=== PATIENT | female | born 1955 | race Caucasian/White ===

== ENCOUNTER → 2021-07-04 | Outpatient (CLI) | payer MEDICARE ==
--- NOTE | 2021-07-04 12:04 | REP ---
INDICATION: PAIN. COMPARISON: None. TECHNIQUE: Standing frontal, lateral and sunrise views of both knees were obtained. FINDINGS: Three views of the right knee demonstrate a total knee arthroplasty. The tibial, femoral and patellar components appear normal apposition. There is no evidence of loosening or fracture. There is no evidence of dislocation. There is no knee joint effusion. The periarticular soft tissues are unremarkable. Three views of the left knee demonstrate severe arthritis of the lateral joint space compartment of the knee and mild arthritis of the patellofemoral joint and the medial joint space compartment of the knee. There is no knee joint effusion. The periarticular soft tissues are normal. There is no evidence of fracture or dislocation. IMPRESSION: 1. Normal appearing right total knee arthroplasty. 2. 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 <Electronically signed by Marcelino Sheldon > 07/04/21 1200
== END ==
LOC: M SOG 10:34
PROVIDERS: ATTEND Orthopaedic Surgery Adult Reconstructive Orthopaedic Surgery
DX: M17.12 Unilateral primary osteoarthritis, left knee (principal); M25.562 Pain in left knee; M25.561 Pain in right knee; Z96.651 Presence of right artificial knee joint

== ENCOUNTER 2022-04-09 11:54 | Inpatient (IN) | payer MEDICARE, OTHER ==
[~2022-04-09] VITALS: Ht 162.6 cm; Wt 106.7 kg
[2022-04-09 13:40] LABS: BASO # 0.1 10^3/uL (0.0-0.2); BASO % 0.6 % (0.0-1.0); EOS # 0.2 10^3/uL (0.0-0.5); EOS % 2.2 % (0.0-3.0); HEMATOCRIT 34.1 % (36.0-47.0); HEMOGLOBIN 11.4 g/dl (12.0-15.5); LYMPH # 2.6 10^3/uL (1.5-5.0); LYMPH % 29.7 % (24.0-44.0); MEAN CORPUSCULAR HEMOGLOBIN 30.8 pg (27.0-33.0); MEAN CORPUSCULAR HGB CONC 33.4 g/dl (32.0-36.5); MEAN CORPUSCULAR VOLUME 92.2 fl (80.0-96.0); MONO # 0.8 10^3/uL (0.0-0.8); MONO % 9.5 % (2.0-8.0); NEUTROPHILS # 5.1 10^3/uL (1.5-8.5); NEUTROPHILS % 57.4 % (36.0-66.0); PLATELET COUNT, AUTOMATED 312 10^3/uL (150-450); WHITE BLOOD COUNT 8.8 10^3/uL (4.0-10.0)
[2022-04-09 14:12] LABS: BLOOD UREA NITROGEN 15 MG/DL (7-18); CALCIUM LEVEL 9.9 MG/DL (8.8-10.2); CARBON DIOXIDE LEVEL 31 MEQ/L (21-32); CHLORIDE LEVEL 104 MEQ/L (98-107); GLOMERULAR FILTRATION RATE > 60.0 (>45); GLUCOSE, FASTING 81 MG/DL (70-100); NT-PRO BNP 465 PG/ML (<125); SODIUM LEVEL 140 MEQ/L (136-145)
[2022-04-09 14:14] LABS: ERYTHROCYTE SEDIMENTATION RATE 27 mm/hr (0-30)
[2022-04-09] MEDS ORDERED: KETOROLAC 30 MG/ML 1ML VIAL IV ONE (14:15)
[2022-04-09] MEDS ORDERED: POTASSIUM CHLORIDE 10MEQ SR TABLET PO ONE (14:20)
[2022-04-09] MEDS ORDERED: MORPHINE 2 MG/ML 1ML VIAL IV ONE ×2 (15:55→16:35)
[2022-04-09] MEDS ORDERED: wheelchair (17:55)
[2022-04-09] MEDS ORDERED: NORCO, ANEXSIA 5/325MG TABLET (HYDROcodone/ACETAMINOPHEN) PO ONE (19:20)
[2022-04-09] MEDS ORDERED: MOM 30ML SUSPENSION UDC PO PRN (20:05)
[2022-04-09] MEDS ORDERED: MAALOX 30 ML SUSP *UDC PO PRN (20:05)
[2022-04-09] MEDS: DOCUSATE SODIUM 100MG CAPSULE PO SCH (21:00)
[2022-04-09] MEDS ORDERED: DULO30CA9 PO (21:21)
[2022-04-09] MEDS ORDERED: GABA-282 PO (21:21)
[2022-04-09] MEDS ORDERED: TRAZ-252 PO (21:21)
[2022-04-09] MEDS ORDERED: OYST500T92 PO (21:21)
[2022-04-09] MEDS ORDERED: MELO15TA28 PO (21:21)
[2022-04-09] MEDS ORDERED: VITA100093 PO (21:21)
[2022-04-09] MEDS ORDERED: HYDR-3490 PO (21:21)
[2022-04-09] MEDS ORDERED: MONT10TA97 PO (21:21)
[2022-04-09] MEDS ORDERED: FLON1SPR (21:21)
[2022-04-09] MEDS ORDERED: SYMB16INH INH (21:21)
[2022-04-09] MEDS ORDERED: IBUP1TAB7 PO (21:21)
[2022-04-09] MEDS ORDERED: BUPR15TASR PO (21:21)
[2022-04-09] MEDS ORDERED: ST J300C2 PO (21:21)
[2022-04-09] MEDS ORDERED: CINN500C15 PO (21:21)
[2022-04-09] MEDS ORDERED: AZEL0.05 OU (21:21)
[2022-04-09] MEDS ORDERED: HYDR-3363 PO (21:21)
[2022-04-09] MEDS ORDERED: HOME MED LIST COMPLETE! XX SCH (21:25)
[2022-04-09 21:47] LABS: INR 1.03; PROTHROMBIN TIME 13.9 SECONDS (12.7-14.5)
[2022-04-09 21:48] LABS: PARTIAL THROMBOPLASTIN TIME 38.9 SECONDS (25.9-37.0)
[2022-04-09 21:52] LABS: RSV AMPLIFICATION NEGATIVE (NEGATIVE)
[2022-04-09 22:55] VITALS: BP 130/91
[2022-04-10] MEDS: ACETAMINOPHEN TAB 650MG DOSE (2X325MG) PO PRN (00:12)
[2022-04-10] MEDS: GABAPENTIN 300 MG CAP PO SCH ×4 (00:15→20:31)
[2022-04-10] MEDS: hydrOXYzine 25 MG TAB PO SCH ×2 (00:25→20:31)
[2022-04-10] MEDS: KETOROLAC 30 MG/ML 1ML VIAL IV PRN ×2 (01:42→08:19)
[2022-04-10] MEDS: buPROPion **SR TABLET** (ZYBAN) 150MG PO SCH ×3 (02:40→20:31)
[2022-04-10] MEDS: FLUTICASONE PROP 0.05% NASAL SPRAY 16 GM (FLONASE) SCH ×3 (02:40→20:32)
[2022-04-10] MEDS: traZODone 25MG PER 1/2 TABLET PO SCH ×2 (02:41→20:31)
[2022-04-10 05:45] VITALS: BP 116/65
[2022-04-10 05:57] LABS: HEMATOCRIT 33.1 % (36.0-47.0); HEMOGLOBIN 11.2 g/dl (12.0-15.5); MEAN CORPUSCULAR HEMOGLOBIN 31.5 pg (27.0-33.0); MEAN CORPUSCULAR HGB CONC 33.8 g/dl (32.0-36.5); MEAN CORPUSCULAR VOLUME 93.2 fl (80.0-96.0); PLATELET COUNT, AUTOMATED 292 10^3/uL (150-450); RED BLOOD COUNT 3.55 10^6/uL (4.00-5.40); WHITE BLOOD COUNT 7.5 10^3/uL (4.0-10.0)
[2022-04-10] MEDS ORDERED: POTASSIUM CHLORIDE 10MEQ SR TABLET PO ONE ×2 (06:00→09:00)
[2022-04-10 06:17] LABS: BLOOD UREA NITROGEN 15 MG/DL (7-18); CALCIUM LEVEL 9.5 MG/DL (8.8-10.2); CARBON DIOXIDE LEVEL 35 MEQ/L (21-32); CHLORIDE LEVEL 105 MEQ/L (98-107); CREATININE FOR GFR 0.56 MG/DL (0.55-1.30); GLOMERULAR FILTRATION RATE > 60.0 (>45); GLUCOSE, FASTING 90 MG/DL (70-100); MAGNESIUM LEVEL 1.5 MG/DL (1.8-2.4); POTASSIUM SERUM 2.6 MEQ/L (3.5-5.1); SODIUM LEVEL 142 MEQ/L (136-145)
[2022-04-10] MEDS: KCL 10MEQ/100ML SWI (KRUN) 10 MEQ in IV 1 EA IV SCH ×2 (06:42→08:17)
[2022-04-10] MEDS: SYMBICORT 160/4.5MCG INHALER 6GM INH SCH ×2 (07:00→20:06)
[2022-04-10] MEDS ORDERED: KCL 10MEQ/100ML SWI (KRUN) 10 MEQ in IV 1 EA IV ONE (07:45)
[2022-04-10] MEDS: ENOXAPARIN 40MG/0.4ML SYRINGE (J1650 PER 10MG) SC SCH (08:17)
[2022-04-10] MEDS: MONTELUKAST 10 MG TAB PO SCH (08:17)
[2022-04-10] MEDS: DOCUSATE SODIUM 100MG CAPSULE PO SCH ×2 (08:18→20:31)
[2022-04-10] MEDS: DULoxetine 30MG CAPSULE (CYMBALTA) PO SCH (08:18)
[2022-04-10] MEDS: MELOXICAM (MOBIC) 7.5 MG TAB PO SCH (08:19)
[2022-04-10] MEDS: MAG SULF 1GM/100ML (MAG RUN) 1 GM in IV 1 EA IV SCH ×2 (10:51→12:19)
[2022-04-10] MEDS ORDERED: MAGNESIUM SULFATE 1GM/100ML D5W BAG (10MG/ML) As Ordered ONE (12:18)
[2022-04-10 14:00] VITALS: BP 116/60
[2022-04-10 15:47] LABS: BLOOD UREA NITROGEN 16 MG/DL (7-18); CALCIUM LEVEL 9.5 MG/DL (8.8-10.2); CARBON DIOXIDE LEVEL 33 MEQ/L (21-32); CHLORIDE LEVEL 103 MEQ/L (98-107); CREATININE FOR GFR 0.53 MG/DL (0.55-1.30); GLOMERULAR FILTRATION RATE > 60.0 (>45); GLUCOSE, FASTING 107 MG/DL (70-100); POTASSIUM SERUM 3.4 MEQ/L (3.5-5.1); SODIUM LEVEL 139 MEQ/L (136-145)
[2022-04-10 20:03] VITALS: BP 125/74
[2022-04-11 06:15] VITALS: BP 134/83
[2022-04-11] MEDS: SYMBICORT 160/4.5MCG INHALER 6GM INH SCH ×2 (08:01→19:09)
[2022-04-11 08:27] LABS: BASO % 0.4 % (0.0-1.0); EOS # 0.2 10^3/uL (0.0-0.5); EOS % 2.3 % (0.0-3.0); HEMATOCRIT 34.8 % (36.0-47.0); HEMOGLOBIN 11.4 g/dl (12.0-15.5); LYMPH # 2.5 10^3/uL (1.5-5.0); MEAN CORPUSCULAR HEMOGLOBIN 31.1 pg (27.0-33.0); MEAN CORPUSCULAR HGB CONC 32.8 g/dl (32.0-36.5); MEAN CORPUSCULAR VOLUME 94.8 fl (80.0-96.0); MONO # 0.8 10^3/uL (0.0-0.8); NEUTROPHILS # 5.5 10^3/uL (1.5-8.5); NEUTROPHILS % 60.9 % (36.0-66.0); PLATELET COUNT, AUTOMATED 294 10^3/uL (150-450); RED BLOOD COUNT 3.67 10^6/uL (4.00-5.40); WHITE BLOOD COUNT 9.1 10^3/uL (4.0-10.0)
[2022-04-11 08:58] LABS: ALT/SGPT 10 U/L (12-78); BILIRUBIN,TOTAL 0.3 MG/DL (0.2-1.0); BLOOD UREA NITROGEN 11 MG/DL (7-18); CALCIUM LEVEL 9.6 MG/DL (8.8-10.2); CARBON DIOXIDE LEVEL 31 MEQ/L (21-32); CHLORIDE LEVEL 108 MEQ/L (98-107); GLOMERULAR FILTRATION RATE > 60.0 (>45); GLUCOSE, FASTING 93 MG/DL (70-100); MAGNESIUM LEVEL 1.9 MG/DL (1.8-2.4); POTASSIUM SERUM 3.3 MEQ/L (3.5-5.1); SODIUM LEVEL 144 MEQ/L (136-145); TOTAL PROTEIN 6.1 GM/DL (6.4-8.2)
[2022-04-11] MEDS: DULoxetine 30MG CAPSULE (CYMBALTA) PO SCH (09:57)
[2022-04-11] MEDS: ENOXAPARIN 40MG/0.4ML SYRINGE (J1650 PER 10MG) SC SCH (09:57)
[2022-04-11] MEDS: MELOXICAM (MOBIC) 7.5 MG TAB PO SCH (09:57)
[2022-04-11] MEDS: DOCUSATE SODIUM 100MG CAPSULE PO SCH ×2 (09:58→20:49)
[2022-04-11] MEDS: GABAPENTIN 300 MG CAP PO SCH ×3 (09:58→20:49)
[2022-04-11] MEDS: ACETAMINOPHEN TAB 650MG DOSE (2X325MG) PO PRN (09:58)
[2022-04-11] MEDS: MONTELUKAST 10 MG TAB PO SCH (09:58)
[2022-04-11] MEDS: buPROPion **SR TABLET** (ZYBAN) 150MG PO SCH ×2 (09:58→20:49)
[2022-04-11] MEDS: FLUTICASONE PROP 0.05% NASAL SPRAY 16 GM (FLONASE) SCH ×2 (09:59→20:50)
[2022-04-11] MEDS: SPIRONOLACTONE 12.5MG PER 1/2 TABLET PO SCH (12:55)
[2022-04-11] MEDS: hydroCHLOROthiazide 12.5 MG CAPSULE PO SCH ×2 (12:56→13:11)
[2022-04-11] MEDS: cefTRIAXone SOD 1 GM in D5W MINI-BAG PLUS 50 ML IV SCH (16:52)
[2022-04-11] MEDS: traZODone 25MG PER 1/2 TABLET PO SCH (20:49)
[2022-04-11] MEDS: hydrOXYzine 25 MG TAB PO SCH (20:49)
[2022-04-11 21:00] VITALS: BP 111/57
[2022-04-12 06:25] VITALS: BP 119/75
[2022-04-12] MEDS: SYMBICORT 160/4.5MCG INHALER 6GM INH SCH ×2 (07:15→19:55)
[2022-04-12] MEDS ORDERED: ISOVUE-370 76% 100ML VIAL As Ordered ONE (07:51)
[2022-04-12 09:17] LABS: BASO # 0.1 10^3/uL (0.0-0.2); BASO % 0.6 % (0.0-1.0); EOS # 0.2 10^3/uL (0.0-0.5); EOS % 2.2 % (0.0-3.0); HEMATOCRIT 39.4 % (36.0-47.0); HEMOGLOBIN 12.5 g/dl (12.0-15.5); LYMPH # 2.6 10^3/uL (1.5-5.0); LYMPH % 24.9 % (24.0-44.0); MEAN CORPUSCULAR HGB CONC 31.7 g/dl (32.0-36.5); MEAN CORPUSCULAR VOLUME 94.7 fl (80.0-96.0); MONO # 0.8 10^3/uL (0.0-0.8); MONO % 7.5 % (2.0-8.0); NEUTROPHILS # 6.6 10^3/uL (1.5-8.5); NEUTROPHILS % 64.4 % (36.0-66.0); PLATELET COUNT, AUTOMATED 326 10^3/uL (150-450); RED BLOOD COUNT 4.16 10^6/uL (4.00-5.40); WHITE BLOOD COUNT 10.2 10^3/uL (4.0-10.0)
[2022-04-12 09:47] LABS: BLOOD UREA NITROGEN 8 MG/DL (7-18); CALCIUM LEVEL 9.8 MG/DL (8.8-10.2); CARBON DIOXIDE LEVEL 31 MEQ/L (21-32); CHLORIDE LEVEL 109 MEQ/L (98-107); CREATININE FOR GFR 0.56 MG/DL (0.55-1.30); GLOMERULAR FILTRATION RATE > 60.0 (>45); GLUCOSE, FASTING 83 MG/DL (70-100); POTASSIUM SERUM 3.6 MEQ/L (3.5-5.1); SODIUM LEVEL 145 MEQ/L (136-145)
[2022-04-12] MEDS: ENOXAPARIN 40MG/0.4ML SYRINGE (J1650 PER 10MG) SC SCH (09:56)
[2022-04-12] MEDS: hydroCHLOROthiazide 12.5 MG CAPSULE PO SCH (09:57)
[2022-04-12] MEDS: MONTELUKAST 10 MG TAB PO SCH (09:57)
[2022-04-12] MEDS: GABAPENTIN 300 MG CAP PO SCH ×3 (09:57→20:45)
[2022-04-12] MEDS: DULoxetine 30MG CAPSULE (CYMBALTA) PO SCH (09:57)
[2022-04-12] MEDS: SPIRONOLACTONE 12.5MG PER 1/2 TABLET PO SCH (09:57)
[2022-04-12] MEDS: MELOXICAM (MOBIC) 7.5 MG TAB PO SCH (09:57)
[2022-04-12] MEDS: buPROPion **SR TABLET** (ZYBAN) 150MG PO SCH ×2 (09:57→20:45)
[2022-04-12] MEDS: FLUTICASONE PROP 0.05% NASAL SPRAY 16 GM (FLONASE) SCH ×2 (09:58→21:00)
[2022-04-12 14:00] VITALS: BP 140/83
[2022-04-12] MEDS: cefTRIAXone SOD 1 GM in D5W MINI-BAG PLUS 50 ML IV SCH (17:00)
[2022-04-12] MEDS: hydrOXYzine 25 MG TAB PO SCH (20:45)
[2022-04-12] MEDS: traZODone 25MG PER 1/2 TABLET PO SCH (20:45)
[2022-04-12 21:30] VITALS: BP 141/85
[2022-04-13 06:00] VITALS: BP 138/67
[2022-04-13 06:10] LABS: BASO % 0.5 % (0.0-1.0); EOS # 0.2 10^3/uL (0.0-0.5); EOS % 2.4 % (0.0-3.0); HEMATOCRIT 33.7 % (36.0-47.0); HEMOGLOBIN 10.8 g/dl (12.0-15.5); LYMPH # 2.8 10^3/uL (1.5-5.0); LYMPH % 32.1 % (24.0-44.0); MEAN CORPUSCULAR HEMOGLOBIN 30.7 pg (27.0-33.0); MEAN CORPUSCULAR VOLUME 95.7 fl (80.0-96.0); MONO # 0.9 10^3/uL (0.0-0.8); MONO % 9.8 % (2.0-8.0); NEUTROPHILS # 4.7 10^3/uL (1.5-8.5); NEUTROPHILS % 54.9 % (36.0-66.0); PLATELET COUNT, AUTOMATED 267 10^3/uL (150-450); RED BLOOD COUNT 3.52 10^6/uL (4.00-5.40); WHITE BLOOD COUNT 8.7 10^3/uL (4.0-10.0)
[2022-04-13 06:30] LABS: BLOOD UREA NITROGEN 8 MG/DL (7-18); CARBON DIOXIDE LEVEL 28 MEQ/L (21-32); CHLORIDE LEVEL 107 MEQ/L (98-107); CREATININE FOR GFR 0.44 MG/DL (0.55-1.30); GLOMERULAR FILTRATION RATE > 60.0 (>45); GLUCOSE, FASTING 82 MG/DL (70-100); MAGNESIUM LEVEL 1.7 MG/DL (1.8-2.4); POTASSIUM SERUM 3.3 MEQ/L (3.5-5.1); SODIUM LEVEL 142 MEQ/L (136-145)
[2022-04-13] MEDS: SYMBICORT 160/4.5MCG INHALER 6GM INH SCH ×2 (07:13→20:15)
[2022-04-13] MEDS: DULoxetine 30MG CAPSULE (CYMBALTA) PO SCH (09:58)
[2022-04-13] MEDS: ENOXAPARIN 40MG/0.4ML SYRINGE (J1650 PER 10MG) SC SCH (09:58)
[2022-04-13] MEDS: MAG SULF 1GM/100ML (MAG RUN) 1 GM in IV 1 EA IV SCH ×2 (09:58→10:54)
[2022-04-13] MEDS: POTASSIUM CHLORIDE 10MEQ SR TABLET PO SCH ×2 (09:58→20:22)
[2022-04-13] MEDS: buPROPion **SR TABLET** (ZYBAN) 150MG PO SCH ×2 (09:58→20:23)
[2022-04-13] MEDS: GABAPENTIN 300 MG CAP PO SCH ×3 (09:58→20:23)
[2022-04-13] MEDS: MELOXICAM (MOBIC) 7.5 MG TAB PO SCH (09:58)
[2022-04-13] MEDS: MONTELUKAST 10 MG TAB PO SCH (09:59)
[2022-04-13] MEDS: hydroCHLOROthiazide 12.5 MG CAPSULE PO SCH (09:59)
[2022-04-13] MEDS: FLUTICASONE PROP 0.05% NASAL SPRAY 16 GM (FLONASE) SCH ×2 (09:59→20:23)
[2022-04-13] MEDS: SPIRONOLACTONE 12.5MG PER 1/2 TABLET PO SCH (10:01)
[2022-04-13 14:00] VITALS: BP 134/72
[2022-04-13] MEDS: cefTRIAXone SOD 1 GM in D5W MINI-BAG PLUS 50 ML IV SCH (17:27)
[2022-04-13] MEDS: ACETAMINOPHEN TAB 650MG DOSE (2X325MG) PO PRN (17:27)
[2022-04-13] MEDS: hydrOXYzine 25 MG TAB PO SCH (20:23)
[2022-04-13] MEDS: MAGNESIUM OXIDE 400MG TAB (MAG-OX) PO SCH (20:23)
[2022-04-13] MEDS: traZODone 25MG PER 1/2 TABLET PO SCH (20:23)
[2022-04-13 20:25] VITALS: BP 136/69
[2022-04-14 05:06] VITALS: BP 147/80
[2022-04-14] MEDS: ACETAMINOPHEN TAB 650MG DOSE (2X325MG) PO PRN (06:06)
[2022-04-14 06:49] LABS: BASO # 0.1 10^3/uL (0.0-0.2); BASO % 0.7 % (0.0-1.0); EOS # 0.2 10^3/uL (0.0-0.5); HEMATOCRIT 34.6 % (36.0-47.0); HEMOGLOBIN 11.4 g/dl (12.0-15.5); LYMPH % 33.5 % (24.0-44.0); MEAN CORPUSCULAR HEMOGLOBIN 30.6 pg (27.0-33.0); MEAN CORPUSCULAR HGB CONC 32.9 g/dl (32.0-36.5); MEAN CORPUSCULAR VOLUME 92.8 fl (80.0-96.0); MONO # 0.8 10^3/uL (0.0-0.8); MONO % 9.3 % (2.0-8.0); NEUTROPHILS # 4.8 10^3/uL (1.5-8.5); NEUTROPHILS % 54.1 % (36.0-66.0); PLATELET COUNT, AUTOMATED 288 10^3/uL (150-450); RED BLOOD COUNT 3.73 10^6/uL (4.00-5.40); WHITE BLOOD COUNT 8.9 10^3/uL (4.0-10.0)
[2022-04-14 07:08] LABS: BLOOD UREA NITROGEN 9 MG/DL (7-18); CARBON DIOXIDE LEVEL 29 MEQ/L (21-32); CHLORIDE LEVEL 107 MEQ/L (98-107); GLOMERULAR FILTRATION RATE > 60.0 (>45); GLUCOSE, FASTING 83 MG/DL (70-100); SODIUM LEVEL 140 MEQ/L (136-145)
[2022-04-14] MEDS: SYMBICORT 160/4.5MCG INHALER 6GM INH SCH ×2 (07:12→20:39)
[2022-04-14] MEDS: SPIRONOLACTONE 12.5MG PER 1/2 TABLET PO SCH (09:42)
[2022-04-14] MEDS: buPROPion **SR TABLET** (ZYBAN) 150MG PO SCH ×2 (09:43→21:37)
[2022-04-14] MEDS: POTASSIUM CHLORIDE 10MEQ SR TABLET PO SCH ×2 (09:43→21:35)
[2022-04-14] MEDS: GABAPENTIN 300 MG CAP PO SCH ×3 (09:43→21:36)
[2022-04-14] MEDS: ENOXAPARIN 40MG/0.4ML SYRINGE (J1650 PER 10MG) SC SCH (09:43)
[2022-04-14] MEDS: MELOXICAM (MOBIC) 7.5 MG TAB PO SCH (09:43)
[2022-04-14] MEDS: CEFDINIR 300 MG CAP (OMNICEF) PO SCH ×2 (09:43→21:36)
[2022-04-14] MEDS: MAGNESIUM OXIDE 400MG TAB (MAG-OX) PO SCH ×2 (09:43→21:36)
[2022-04-14] MEDS: MONTELUKAST 10 MG TAB PO SCH (09:44)
[2022-04-14] MEDS: hydroCHLOROthiazide 12.5 MG CAPSULE PO SCH (09:44)
[2022-04-14] MEDS: FLUTICASONE PROP 0.05% NASAL SPRAY 16 GM (FLONASE) SCH ×2 (09:44→21:37)
[2022-04-14] MEDS: DULoxetine 30MG CAPSULE (CYMBALTA) PO SCH (09:44)
[2022-04-14] MEDS ORDERED: FUROSEMIDE 40MG/4ML VIAL (J1940) IV ONE (12:00)
[2022-04-14] MEDS: NORCO, ANEXSIA 5/325MG TABLET (HYDROcodone/ACETAMINOPHEN) PO PRN (13:08)
[2022-04-14 14:00] VITALS: BP 137/72
[2022-04-14] MEDS: traZODone 25MG PER 1/2 TABLET PO SCH (21:36)
[2022-04-14] MEDS: hydrOXYzine 25 MG TAB PO SCH (21:37)
[2022-04-14 22:00] VITALS: BP 135/72
[2022-04-15 06:00] VITALS: BP 136/71
[2022-04-15] MEDS: SYMBICORT 160/4.5MCG INHALER 6GM INH SCH ×2 (07:12→19:40)
[2022-04-15 07:39] LABS: BASO # 0.1 10^3/uL (0.0-0.2); BASO % 0.7 % (0.0-1.0); EOS # 0.2 10^3/uL (0.0-0.5); EOS % 1.7 % (0.0-3.0); HEMATOCRIT 36.9 % (36.0-47.0); LYMPH % 31.3 % (24.0-44.0); MEAN CORPUSCULAR HEMOGLOBIN 30.5 pg (27.0-33.0); MEAN CORPUSCULAR HGB CONC 32.5 g/dl (32.0-36.5); MEAN CORPUSCULAR VOLUME 93.7 fl (80.0-96.0); MONO % 10.4 % (2.0-8.0); NEUTROPHILS # 5.3 10^3/uL (1.5-8.5); NEUTROPHILS % 55.5 % (36.0-66.0); PLATELET COUNT, AUTOMATED 301 10^3/uL (150-450); RED BLOOD COUNT 3.94 10^6/uL (4.00-5.40); WHITE BLOOD COUNT 9.5 10^3/uL (4.0-10.0)
[2022-04-15 08:00] LABS: BLOOD UREA NITROGEN 10 MG/DL (7-18); CALCIUM LEVEL 9.6 MG/DL (8.8-10.2); CARBON DIOXIDE LEVEL 27 MEQ/L (21-32); CHLORIDE LEVEL 108 MEQ/L (98-107); CREATININE FOR GFR 0.56 MG/DL (0.55-1.30); GLOMERULAR FILTRATION RATE > 60.0 (>45); GLUCOSE, FASTING 88 MG/DL (70-100); MAGNESIUM LEVEL 2.1 MG/DL (1.8-2.4); POTASSIUM SERUM 4.4 MEQ/L (3.5-5.1); SODIUM LEVEL 140 MEQ/L (136-145)
[2022-04-15] MEDS: POTASSIUM CHLORIDE 10MEQ SR TABLET PO SCH ×2 (09:26→20:20)
[2022-04-15] MEDS: MAGNESIUM OXIDE 400MG TAB (MAG-OX) PO SCH ×2 (09:27→20:20)
[2022-04-15] MEDS: MELOXICAM (MOBIC) 7.5 MG TAB PO SCH (09:27)
[2022-04-15] MEDS: GABAPENTIN 300 MG CAP PO SCH ×3 (09:27→20:20)
[2022-04-15] MEDS: MONTELUKAST 10 MG TAB PO SCH (09:27)
[2022-04-15] MEDS: buPROPion **SR TABLET** (ZYBAN) 150MG PO SCH ×2 (09:27→20:20)
[2022-04-15] MEDS: CEFDINIR 300 MG CAP (OMNICEF) PO SCH ×2 (09:27→20:20)
[2022-04-15] MEDS: DULoxetine 30MG CAPSULE (CYMBALTA) PO SCH (09:27)
[2022-04-15] MEDS: FLUTICASONE PROP 0.05% NASAL SPRAY 16 GM (FLONASE) SCH ×2 (09:28→20:20)
[2022-04-15] MEDS: ENOXAPARIN 40MG/0.4ML SYRINGE (J1650 PER 10MG) SC SCH (09:28)
[2022-04-15] MEDS: NORCO, ANEXSIA 5/325MG TABLET (HYDROcodone/ACETAMINOPHEN) PO PRN ×2 (10:25→17:49)
[2022-04-15 11:18] LABS: C REACTIVE PROTEIN QUANTITATIV < 0.30 MG/DL (0.00-0.30)
[2022-04-15 12:35] LABS: ERYTHROCYTE SEDIMENTATION RATE 20 mm/hr (0-30)
[2022-04-15 14:00] VITALS: BP 129/69
[2022-04-15] MEDS: traZODone 25MG PER 1/2 TABLET PO SCH (20:20)
[2022-04-15] MEDS: hydrOXYzine 25 MG TAB PO SCH (20:20)
[2022-04-15 22:00] VITALS: BP 126/69
[2022-04-16] MEDS: NORCO, ANEXSIA 5/325MG TABLET (HYDROcodone/ACETAMINOPHEN) PO PRN (03:06)
[2022-04-16 06:00] VITALS: BP 123/66
[2022-04-16 06:26] LABS: BASO # 0.1 10^3/uL (0.0-0.2); BASO % 0.5 % (0.0-1.0); EOS # 0.2 10^3/uL (0.0-0.5); EOS % 1.9 % (0.0-3.0); HEMATOCRIT 41.4 % (36.0-47.0); HEMOGLOBIN 13.3 g/dl (12.0-15.5); LYMPH # 3.5 10^3/uL (1.5-5.0); LYMPH % 35.4 % (24.0-44.0); MEAN CORPUSCULAR HEMOGLOBIN 30.9 pg (27.0-33.0); MEAN CORPUSCULAR HGB CONC 32.1 g/dl (32.0-36.5); MEAN CORPUSCULAR VOLUME 96.3 fl (80.0-96.0); MONO # 0.9 10^3/uL (0.0-0.8); MONO % 9.2 % (2.0-8.0); NEUTROPHILS # 5.2 10^3/uL (1.5-8.5); NEUTROPHILS % 52.5 % (36.0-66.0); PLATELET COUNT, AUTOMATED 330 10^3/uL (150-450); WHITE BLOOD COUNT 9.8 10^3/uL (4.0-10.0)
[2022-04-16 06:47] LABS: BLOOD UREA NITROGEN 14 MG/DL (7-18); CARBON DIOXIDE LEVEL 27 MEQ/L (21-32); CHLORIDE LEVEL 108 MEQ/L (98-107); CREATININE FOR GFR 0.62 MG/DL (0.55-1.30); GLOMERULAR FILTRATION RATE > 60.0 (>45); GLUCOSE, FASTING 90 MG/DL (70-100); MAGNESIUM LEVEL 2.3 MG/DL (1.8-2.4); POTASSIUM SERUM 4.9 MEQ/L (3.5-5.1); SODIUM LEVEL 139 MEQ/L (136-145)
[2022-04-16] MEDS: SYMBICORT 160/4.5MCG INHALER 6GM INH SCH (08:05)
[2022-04-16] MEDS ORDERED: POTASSIUM CHLORIDE 10MEQ SR TABLET PO SCH (09:00)
[2022-04-16] MEDS ORDERED: TORSEMIDE 20 MG TAB PO SCH (09:00)
[2022-04-16] MEDS ORDERED: SPIRONOLACTONE 25 MG TAB PO SCH (09:00)
[2022-04-16] MEDS ORDERED: PERCOCET 5MG/325MG TAB PO PRN (09:40)
[2022-04-16] MEDS ORDERED: KETOROLAC 30 MG/ML 1ML VIAL IV ONE (10:00)
[2022-04-16] MEDS: ENOXAPARIN 40MG/0.4ML SYRINGE (J1650 PER 10MG) SC SCH (10:14)
[2022-04-16] MEDS: FLUTICASONE PROP 0.05% NASAL SPRAY 16 GM (FLONASE) SCH (10:15)
[2022-04-16] MEDS: MONTELUKAST 10 MG TAB PO SCH (10:17)
[2022-04-16] MEDS: CEFDINIR 300 MG CAP (OMNICEF) PO SCH (10:17)
[2022-04-16] MEDS: GABAPENTIN 300 MG CAP PO SCH (10:17)
[2022-04-16] MEDS: DULoxetine 30MG CAPSULE (CYMBALTA) PO SCH (10:17)
[2022-04-16] MEDS: MAGNESIUM OXIDE 400MG TAB (MAG-OX) PO SCH (10:18)
[2022-04-16] MEDS: buPROPion **SR TABLET** (ZYBAN) 150MG PO SCH (10:20)
[2022-04-16] MEDS ORDERED: K-TA10TA2 PO (11:31)
[2022-04-16] MEDS ORDERED: LASI40TA9 PO (11:31)
[2022-04-16] MEDS ORDERED: ALDA25TA2 PO (11:31)
[2022-04-16] MEDS ORDERED: HYDR-3713 PO (11:31)
[2022-04-16] MEDS ORDERED: MAGN400T2 PO (11:31)
[2022-04-16 14:00] VITALS: BP 122/66
[2022-04-16] MEDS ORDERED: KETOROLAC 30 MG/ML 1ML VIAL IV SCH (16:00)
== END 2022-04-16 16:05 | disposition home health service (06) | DRG 690 ==
LOC: M ED 11:54 → EDSEX 11:54 → EDBD 11:54 → M ED INP 20:03 → M MSPAV 23:52 → OBSVTOIN 04-12 13:10
PROVIDERS: ADMIT Internal Medicine; ATTEND Internal Medicine Nephrology
PROC: B246ZZZ Ultrasonography of Right and Left Heart (ICD-10-PCS; principal; 2022-04-10)
DX: N39.0 Urinary tract infection, site not specified (principal); Z68.41 Body mass index [BMI] 40.0-44.9, adult; M25.552 Pain in left hip; I08.0 Rheumatic disorders of both mitral and aortic valves; I10 Essential (primary) hypertension; J45.909 Unspecified asthma, uncomplicated; F32.A Depression, unspecified; F41.9 Anxiety disorder, unspecified; Z96.651 Presence of right artificial knee joint; Z87.891 Personal history of nicotine dependence; Z90.49 Acquired absence of other specified parts of digestive tract; Z79.899 Other long term (current) drug therapy; R60.0 Localized edema; R29.6 Repeated falls; E87.6 Hypokalemia; R41.0 Disorientation, unspecified; B95.8 Unspecified staphylococcus as the cause of diseases classified elsewhere; E83.42 Hypomagnesemia; M16.32 Unilateral osteoarthritis resulting from hip dysplasia, left hip; K74.60 Unspecified cirrhosis of liver; E66.01 Morbid (severe) obesity due to excess calories

== ENCOUNTER 2022-06-03 17:00 | Emergency (ER) | payer OTHER ==
[~2022-06-03 17:00] MED LIST: ALDA25TA2 PO; AZEL0.05 OU; BUPR15TASR PO; CINN500C15 PO; DULO30CA9 PO; FLON1SPR; GABA-282 PO; HYDR-3363 PO; HYDR-3490 PO; HYDR-3713 PO; IBUP1TAB7 PO; K-TA10TA2 PO; LASI40TA9 PO; MAGN400T2 PO; MELO15TA28 PO; MONT10TA97 PO; OYST500T92 PO; ST J300C2 PO; SYMB16INH INH; TRAZ-252 PO; VITA100093 PO; wheelchair
[2022-06-03] MEDS ORDERED: FUROSEMIDE 80 MG TAB PO ONE (17:30)
[2022-06-03] MEDS ORDERED: NORCO, ANEXSIA 5/325MG TABLET (HYDROcodone/ACETAMINOPHEN) PO ONE (17:30)
[2022-06-03 19:55] VITALS: BP 131/66
== END 2022-06-03 20:40 | disposition home or self-care (01) ==
LOC: M ED 17:00
DX: G89.29 Other chronic pain (principal); M25.552 Pain in left hip; I87.2 Venous insufficiency (chronic) (peripheral); Z91.19 Patient's noncompliance with other medical treatment and regimen; I10 Essential (primary) hypertension; J45.909 Unspecified asthma, uncomplicated; M16.12 Unilateral primary osteoarthritis, left hip; F33.9 Major depressive disorder, recurrent, unspecified; F41.9 Anxiety disorder, unspecified; E78.5 Hyperlipidemia, unspecified; E66.8 Other obesity; Z87.891 Personal history of nicotine dependence; Z79.899 Other long term (current) drug therapy

== ENCOUNTER → 2022-07-30 | Outpatient (CLI) | payer OTHER | LOC: M RADPRO 16:17 | PROVIDERS: ATTEND Physician Assistant | DX: Z53.9 Procedure and treatment not carried out, unspecified reason (principal); M25.552 Pain in left hip ==

== ENCOUNTER → 2022-08-21 | Outpatient (CLI) | payer OTHER ==
[~2022-08-21] MED LIST changes: +ISOVUE-300 61% 50ML VIAL As Ordered ONE; +LIDOCAINE 1% MDV 20ML VIAL As Ordered ONE; +methylPREDNISolone SUSP 40MG/ML 1ML VIAL (DEPO MEDROL) As Ordered ONE
== END ==
LOC: M RAD 14:53
PROVIDERS: ATTEND Physician Assistant
DX: M25.552 Pain in left hip (principal)
CPT/HCPCS: 76000; J1030; Q9967

== ENCOUNTER 2025-10-13 07:20 | Emergency (ER) | payer MEDICARE, OTHER ==
[~2025-10-13] VITALS: Ht 160 cm; Wt 129.6 kg
[~2025-10-13 07:20] MED LIST changes: +ACET32TAB PO; -FLON1SPR; +FLON1SPR NARES; +GABA-1172 PO; -GABA-282 PO; -ISOVUE-300 61% 50ML VIAL As Ordered ONE; -K-TA10TA2 PO; -LIDOCAINE 1% MDV 20ML VIAL As Ordered ONE; +POTA-149 PO; +POTA-165 PO; -methylPREDNISolone SUSP 40MG/ML 1ML VIAL (DEPO MEDROL) As Ordered ONE
[2025-10-13 07:24] VITALS: TEMP 98.1
[2025-10-13 08:01] LABS: BASO # 0.1 10^3/uL (0.0-0.2); BASO % 0.4 % (0.0-1.0); EOS # 0.1 10^3/uL (0.0-0.5); EOS % 0.8 % (0.0-3.0); LYMPH # 2.8 10^3/uL (1.5-5.0); LYMPH % 24.2 % (24.0-44.0); MONO # 1.0 10^3/uL (0.0-0.8); MONO % 8.8 % (2.0-8.0); NEUTROPHILS # 7.7 10^3/uL (1.5-8.5); NEUTROPHILS % 65.5 % (36.0-66.0); PLATELET COUNT, AUTOMATED 308 10^3/uL (150-450)
[2025-10-13 08:23] LABS: ALT/SGPT 12 U/L (7.0-40); AST/SGOT 16 U/L (<34); CALCIUM LEVEL 9.3 MG/DL (8.3-10.6); CARBON DIOXIDE LEVEL 33 MMOL/L (20-31); CHLORIDE LEVEL 100 MMOL/L (98-107); CREATININE FOR GFR 0.48 MG/DL (0.55-1.30); GLOMERULAR FILTRATION RATE > 90.0 (>45); POTASSIUM SERUM 3.8 MMOL/L (3.5-5.1); SODIUM LEVEL 140 MMOL/L (136-145)
[2025-10-13 08:23] LABS: INR 0.98
[2025-10-13] MEDS ORDERED: ISOVUE-370 76% 100 ML VIAL As Ordered ONE (08:41)
[2025-10-13] MEDS ORDERED: VENTAER INH (09:32)
[2025-10-13] MEDS ORDERED: ACET-1515 PO (09:32)
[2025-10-13] MEDS ORDERED: ROSU5TAB49 PO (09:32)
[2025-10-13] MEDS ORDERED: SPIR-10 PO (09:32)
[2025-10-13] MEDS ORDERED: FURO40TA2 PO (09:32)
[2025-10-13] MEDS ORDERED: CIPR0.3S37 OS (09:32)
[2025-10-13] MEDS ORDERED: HOME MED LIST COMPLETE! XX SCH (09:35)
[2025-10-13] MEDS: ACETAMINOPHEN *IV* 1,000 MG in IV 1 EA IV ONE (10:25)
[2025-10-13 11:45] LABS: Trichomonas vaginalis (AMP) NOT DETECTED (NEGATIVE)
[2025-10-13 12:08] LABS: GC DNA AMPLIFICATION NEGATIVE (NEGATIVE)
[2025-10-13] MEDS ORDERED: metroNIDAZOLE 500 MG in IV 1 EA IV ONE (12:20)
[2025-10-13 13:19] LABS: HIV 1&2 SCREEN NEGATIVE (NEGATIVE)
[2025-10-13] MEDS: CIPROFLOXACIN 400 MG in IV 1 EA IV ONE (13:56)
[2025-10-13] MEDS ORDERED: CEFD1CAP9 PO (14:30)
[2025-10-13] MEDS ORDERED: METR-265 PO (14:30)
[2025-10-13 16:00] VITALS: BP 95/50
[2025-10-13 16:10] VITALS: O2SAT 91
== END 2025-10-13 16:38 | disposition home or self-care (01) ==
LOC: EDBD 07:20 → M ED 07:20
DX: K92.2 Gastrointestinal hemorrhage, unspecified (principal); K62.89 Other specified diseases of anus and rectum; I10 Essential (primary) hypertension; Z87.891 Personal history of nicotine dependence
CPT/HCPCS: 71045; 74174; 80053; 83690; 85025; 85610; 85730; 86780; 86850; 86900; 86901; 87389; 87661; 87810; 87850; 93041; 96365; 96366; 96368; 99285; J0131; J0744; Q9967

== ENCOUNTER → 2025-10-19 | Outpatient (REF) | payer MEDICARE ==
[~2025-10-19] MED LIST changes: +ACET-1515 PO; +CEFD1CAP9 PO; +CIPR0.3S37 OS; +FURO40TA2 PO; +METR-265 PO; +ROSU5TAB49 PO; +SPIR-10 PO; -ST J300C2 PO; +ST.300CA PO; +VENTAER INH
== END ==
LOC: M LAB REF 10:47
PROVIDERS: ATTEND Internal Medicine
DX: R19.7 Diarrhea, unspecified (principal); K92.2 Gastrointestinal hemorrhage, unspecified